=== PATIENT | female | born 1945 | race Caucasian/White ===

== ENCOUNTER 2017-06-12 09:17 | Outpatient (CLI) | payer MEDICARE ==
--- NOTE | 2017-06-12 11:48 | MMO ---
BILATERAL SCREENING MAMMOGRAM: History: Screening. Comparison: 2015, 2014, 2013. FINDINGS: This study is interpreted with the assistance of computer aided detection. Breast are heterogeneously dense which may obscure small masses. There is a benign appearing calcifie d mass in the right breast, posterior duct superior one-half. This is similar. Overlying calcificatio ns of both breasts. No suspicious mass, architectural distortion or microcalcifications. IMPRESSION: BIRADS 2 - benign findings. Continued annual mammographic screening is recommended. POS: JOSAFAT
== END 2017-06-12 09:18 | disposition home or self-care (01) ==
LOC: SCSMAMMO 09:17
PROVIDERS: ATTEND Obstetrics & Gynecology
DX: Z12.31 Encounter for screening mammogram for malignant neoplasm of breast (principal)
CPT/HCPCS: 77067

== ENCOUNTER 2017-08-22 09:17 | Outpatient (CLI) | payer MEDICARE, OTHER | END 2017-08-22 09:18 | disposition home or self-care (01) | LOC: BICMAMMO 09:17 | PROVIDERS: ATTEND Obstetrics & Gynecology | DX: Z13.820 Encounter for screening for osteoporosis (principal); M85.88 Other specified disorders of bone density and structure, other site; M85.852 Other specified disorders of bone density and structure, left thigh | CPT/HCPCS: 77080 ==

== ENCOUNTER 2018-06-30 10:25 | Outpatient (CLI) | payer MEDICARE, OTHER ==
--- NOTE | 2018-06-30 17:36 | MMO ---
BILATERAL DIGITAL SCREENING MAMMOGRAM: Date: 06/30/18 HISTORY: Patient with lumpectomy several years ago. FINDINGS: Bilateral craniocaudal and mediolateral digital screening mammograms obtained. Comparison made to previous exam from 06/12/17. Images were also performed using computer-aided detection. Images demonstrate no definite evidence of newly developed masses or lesions. No evidence of architec tural distortion seen. IMPRESSION: BIRADS 1: Negative POS: JOSAFAT
== END 2018-06-30 10:26 | disposition home or self-care (01) ==
LOC: SCSMAMMO 10:25
PROVIDERS: ATTEND Obstetrics & Gynecology
DX: Z12.31 Encounter for screening mammogram for malignant neoplasm of breast (principal)
CPT/HCPCS: 77067